=== PATIENT | female | born 1970 | race Caucasian/White ===

== ENCOUNTER → 2018-08-23 | Outpatient (CLI) | payer OTHER ==
--- NOTE | 2018-08-26 08:26 | USB ---
Reason for exam: clinical finding. History: Patient had first child at age 32. Taking hormonal contraceptives beginning at age 16. Indicated problem(s): palpable abnormality, skin thickening or retraction, lump or thickening, and pain in the right breast. Physical Findings: Nurse Summary: 2-3cm nodule at 10 o'clock, 1cm nodule at 12 o'clock (nurse dw). US Breast RT Right complete breast ultrasound includes all four quadrants, the retroareolar region and axilla. Finding demonstrates a 1.8 x 0.9 x 3.1cm irregular, solid, vascular lesion at 9 o'clock BB, a 0.6 x 0.3 x 0.6cm oval, cystic lesion at 10 o'clock, a 0.7 x 0.3 x 0.6cm oval, cystic lesion at 11 o'clock and two benign lymph nodes at the axilla measuring 0.5cm and 0.6cm. These results were verbally communicated with the patient and result sheet given to the patient on 08/23/18. ASSESSMENT: Highly suggestive of malignancy, BI-RAD 5 RECOMMENDATION: Ultrasound core biopsy of the right breast. Called Dr. Knight with mammographic findings and has scheduled an appointment for the patient for 09/19/18 at 9:[address] Sloan. Biopsy scheduled for 08/30/18 at 8:00. PRELIMINARY REPORT CALLED AND FAXED TO DR. SLOAN ON 08/26/18.
--- NOTE | 2018-08-26 08:30 | MM ---
Reason for exam: screening (asymptomatic). Baseline mammogram. History: Patient had first child at age 32. Taking hormonal contraceptives beginning at age 16. MG 3D Screening Mammo W/Cad Bilateral CC and MLO view(s) were taken. The breast tissue is heterogeneously dense. This may lower the sensitivity of mammography. Finding: There is a 30-50 mm spiculated mass in the upper outer quadrant, posterior position of the right breast. These results were verbally communicated with the patient and result sheet given to the patient on 08/23/18. ASSESSMENT: Incomplete: need additional imaging evaluation, BI-RAD 0 RECOMMENDATION: Ultrasound of the right breast.
== END ==
LOC: RADUSWWP 13:56
PROVIDERS: ATTEND Family Medicine
DX: Z12.31 Encounter for screening mammogram for malignant neoplasm of breast (principal); N64.4 Mastodynia; R92.8 Other abnormal and inconclusive findings on diagnostic imaging of breast
CPT/HCPCS: 77063; 77067

== ENCOUNTER → 2018-08-30 | Day surgery (SDC) | payer OTHER ==
[2018-08-30 07:18] VITALS: RESP 16
[2018-08-30 08:43] VITALS: BP 93/58; PULSE 71; TEMP 98.3
--- NOTE | 2018-08-30 12:59 | USB ---
EXAMINATION TYPE: US biopsy breast VAD RT, MG diagnostic mammo RT wo CAD DATE OF EXAM: 08/30/2018 CLINICAL HISTORY: R92.8 ABN YESSI. TECHNIQUE: Ultrasound guided core biopsy of right breast. COMPARISON: 08/23/2018 FINDINGS: The procedure of ultrasound guided core biopsy was explained to the patient. Benefits, alternatives, and risks were discussed. An informed consent was then obtained. Preprocedural timeout was performed. The patient was placed in supine positioning for imaging and for the procedure. The overlying skin was prepped and draped in usual sterile fashion. 10 cc of lidocaine buffered with bicarbonate was used as anesthetic into the skin and subcutaneous as well as 10 cc of lidocaine with epinephrine within the subcutaneous tissues at the site of biopsy up to the 1.8 x 0.9 x 3.1 cm mass at the 9:00 position. Under ultrasound guidance, a 12-gauge vacuum assisted biopsy gun device was used to obtain 4 core samples. Following this, a coil-shaped biopsy marker was left in lesion. The patient tolerated the procedure well without any immediate complication. The patient was kept in the radiology department for short stay after the procedure and then discharged home in stable condition. Postprocedure mammogram demonstrates the biopsy marker located approximately 2 mm medial and 3 mm inferior to the mammographic mass. IMPRESSION: Successful, uncomplicated ultrasound guided core biopsy of the highly suspicious 1.8 x 0.9 x 3.1 cm mass at the 9:00 position within the right breast, full pathology results to follow. No sonographically suspicious lymph nodes were seen on the prior ultrasound of 08/23/2018. 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 Lobular carcinoma and lobular intraepithelial neoplasia/lobular carcinoma in situ is supported by E-Cadherin stained section which is examined in conjunction with appropriate controls. See Surgical Pathology Cancer Case Summary. Recommendation Surgical consult of the right breast. LILA
== END ==
LOC: RADUSWWP 07:02
PROVIDERS: ATTEND Surgery
DX: C50.911 Malignant neoplasm of unspecified site of right female breast (principal)
CPT/HCPCS: 88305; 88342; 88341; 77065; 19083; A4648; J2001

== ENCOUNTER → 2018-09-23 | Outpatient (CLI) | payer OTHER ==
--- NOTE | 2018-09-26 15:43 | BMR ---
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 TECHNIQUE: A series of fat and water weighted images in the long and short axis views of both breasts are obtained in conjunction with dynamic contrast MRI with subtraction technique. The patient was i njected with 6.5 mL intravenous Gadavist gadolinium contrast. Three-dimensional and additional post processing imaging is created on independent workstation and reviewed during official interpretation of this study. REFERENCE: 1.8 x 0.9 x 3.1 cm mass at the 9:00 position on ultrasound FINDINGS: The breasts are composed of heterogenous fibroglandular tissue with mild symmetric backgrou nd parenchymal enhancement. The biopsy marker creates susceptibility artifact at the inferior margin of the biopsy-proven infiltr ating adenocarcinoma consistent with pleomorphic lobular carcinoma. Avid mass enhancement with type I II washout kinetics measures 1.4 x 1.3 cm. At the caudal aspect of the biopsy marker there is nonmass enhancement extending posteriorly measuring 9 mm. The total anterior posterior dimension of the mass measures 2.5 cm. Additionally there is a 2 mm focus of enhancement on postcontrast series 701 image 302 that is located 1 cm anterior to the mass, 4 mm medial to the mass, and 1 cm cranial to the mass at approximately the 11:00 position. This demonstrates punctate focus of type I and type II kinetics and is suspicious given the lobular neoplasm. Just anterior to this there is another punctate focus l ocated 5 mm anterior and 1 cm cranial to the index mass at the 10:00 position. All of these are locat ed in the upper outer quadrant of the right breast. Foci are best seen on sagittal series 802 image 3 0 and marked. Total anterior posterior distance from the nonmass enhancement and most anterior focus measures 5 cm. No suspicious mass nor nonmass enhancement is seen on the left. No suspicious axillary adenopathy, internal mammary adenopathy, nor intramammary adenopathy is seen. IMPRESSION: 1. BI-RADS [id number]-qrtpto malignancy. The right breast mass has a total greatest measurement of 2.5 cm including a 9 mm extension towards the chest wall of nonmass enhancement. There are 2 additional s uspicious foci in the right upper outer quadrant. Including these foci the total measurement in anter ior posterior dimension is 5 cm. Given these enhancing foci multicentric disease is possible and if b reast conservation therapy is pursued MR guided biopsy could be performed (the more posterior focus i s of greater suspicion than the more anterior focus). 2. No MR evidence of contralateral neoplasm in the left breast. No suspicious axillary, internal mamm chente or intramammary adenopathy.
== END | disposition home or self-care (01) ==
LOC: RADMRIMAIN 19:29
PROVIDERS: ATTEND Surgery
DX: N63.10 Unspecified lump in the right breast, unspecified quadrant (principal); C50.911 Malignant neoplasm of unspecified site of right female breast
CPT/HCPCS: 77049; A9585

== ENCOUNTER 2018-10-04 07:33 | Day surgery (SDC) | payer OTHER ==
[2018-10-03 08:29] VITALS: BMI 22.6
[~2018-10-04 07:33] MED LIST: LACTATED RINGERS 1,000 ML IV SCH
[2018-10-04 07:54] VITALS: RESP 16; TEMP 98.2
[2018-10-04] MEDS ORDERED: LIDOCAINE 1% 20 ML VIAL (10MG/ML) FOR IV START INTRADERMA ONE (08:00)
[2018-10-04] MEDS ORDERED: PROPOFOL 10 MG/ML 20 ML VIAL IV ONE (08:27)
--- NOTE | 2018-10-04 08:28 | P.GSHP ---
History of Present Illness H&P Date: 10/04/18 CHIEF COMPLAINT: Colon screen HISTORY OF PRESENT ILLNESS: The patient is a 48-year-old female who presents for colon screen. Lower endoscopy was offered for further evaluation and management. PAST MEDICAL HISTORY: Please see list. PAST SURGICAL HISTORY: Please see list. MEDICATIONS: Please see list. ALLERGIES: Please see list. SOCIAL HISTORY: No illicit drug use FAMILY HISTORY: No reports of Crohn disease or ulcerative colitis. REVIEW OF ORGAN SYSTEMS: CONSTITUTIONAL: No reports of fevers or chills. PHYSICAL EXAM: VITAL SIGNS: Stable GENERAL: Well-developed pleasant in no acute distress. HEENT: No scleral icterus. Extraocular movements grossly intact. Moist buccal mucosa. NECK: Supple without lymphadenopathy. CHEST: Unlabored respirations. Equal bilateral excursions. CARDIOVASCULAR: Regular rate and rhythm. Distal 2+ pulses. ABDOMEN: Soft, nontender, nondistended. MUSCULOSKELETAL: No clubbing, cyanosis, or edema. ASSESSMENT: 1. Colon screen. PLAN: 1. Recommend proceeding with a lower endoscopy Past Medical History Past Medical History: Cancer, GERD/Reflux, Hypertension Additional Past Medical History / Comment(s): seasonal allergies. NEW DX RT BREAST CANCER History of Any Multi-Drug Resistant Organisms: None Reported Additional Past Surgical History / Comment(s): "surgery for endometriosis"- 2000 Past Anesthesia/Blood Transfusion Reactions: No Reported Reaction Smoking Status: Never smoker - Past Family History Father Family Medical History: Cancer Medications and Allergies Home Medications Medication Instructions Recorded Confirmed Type Benazepril HCl 40 mg PO DAILY 08/29/18 10/03/18 History Famotidine 40 mg PO HS 08/29/18 10/03/18 History Loratadine [Claritin] 10 mg PO DAILY PRN 08/29/18 10/03/18 History amLODIPine [Norvasc] 10 mg PO DAILY 08/29/18 10/03/18 History Medroxyprogesterone Acetate 150 mg IM Q90D 10/03/18 10/03/18 History [Depo-Provera] Allergies Allergy/AdvReac Type Severity Reaction Status Date / Time No Known Allergies Allergy Verified 10/04/18 07:44 Surgical - Exam Vital Signs Temp Pulse Resp BP Pulse Ox 98.2 F 94 16 126/79 100 10/04/18 07:49 10/04/18 07:49 10/04/18 07:49 10/04/18 07:49 10/04/18 07:49
--- NOTE | 2018-10-04 08:50 | P.PCN ---
Date of Procedure: 10/04/18 Operative Findings: Hepatic flexure 5 mm with snare, random at ascending colon, evidence of fresh blood without definitive source, stage 2 internal hemorrhoids, prep 1 Description of Procedure: PREOPERATIVE DIAGNOSIS: Family history colon cancer Rectal bleeding POSTOPERATIVE DIAGNOSIS: Family history colon cancer Rectal bleeding OPERATION: Colonoscopy to the ileocecal valve and appendiceal orifice. Colonoscopy with hot snare polypectomies Colonoscopy with multiple cold forceps biopsies. SURGEON: Milka Valadez MD. ANESTHESIA: MAC. INDICATIONS: The patient is a 48-year-old female who presents for colonoscopy screening. Benefits and risks were described and informed consent was obtained. DESCRIPTION OF PROCEDURE: The patient had undergone Gatorade, MiraLAX and Dulcolax prep. He had been brought into the operating room and laid in the left lateral decubitus position. After adequate intravenous sedation, the rectum was examined with 2% lidocaine jelly. External hemorrhoids were encountered. The rectal tone was within normal limits. No lesions were palpated in the rectal vault. An Olympus colonoscope was advanced until the ileocecal valve and appendiceal orifice were clearly viewed. The prep was fair with visualization of the mucosal folds. The scope was removed with visualization of each mucosal fold. No scattered diverticulosis was encountered. Multiple colonic polyps were found and cold forcep biopsy or snare polypectomy. No evidence of focal colitis was found. Retroflexion of the scope demonstrated grade 1 internal hemorrhoids without active bleeding or inflammation. The colon was desufflated. The patient had tolerated the procedure well. Withdrawal time was over 6 minutes. FINDINGS: Aronchick preparation quality scale 1 (1-5) Internal hemorrhoids, grade 2 External hemorrhoids, grade 2. No arteriovenous malformations. Removal of 1 polyp: - Snare polypectomy 20 cm from the anal verge, 5 mm tubulovillous adenoma polyp. Rendom cold forceps biopsy at proximal transverse colon, 4 mm polyp. No focal colitis. RECOMMENDATIONS: Plan - Discharge Summary Discharge Rx Participant: No New Discharge Prescriptions: No Action amLODIPine [Norvasc] 10 mg PO DAILY Loratadine [Claritin] 10 mg PO DAILY PRN PRN Reason: seasonal allergies Famotidine 40 mg PO HS Benazepril HCl 40 mg PO DAILY Medroxyprogesterone Acetate [Depo-Provera] 150 mg IM Q90D Discharge Medication List Benazepril HCl 40 mg PO DAILY 08/29/18 [History] Famotidine 40 mg PO HS 08/29/18 [History] Loratadine [Claritin] 10 mg PO DAILY PRN 08/29/18 [History] amLODIPine [Norvasc] 10 mg PO DAILY 08/29/18 [History] Medroxyprogesterone Acetate [Depo-Provera] 150 mg IM Q90D 10/03/18 [History] Follow up Appointment(s)/Referral(s): Milka Valadez MD [STAFF PHYSICIAN] - 10/22/18 Patient Instructions/Handouts: *Surgery [facility] - (Anesthesia) Endoscopy Discharge Instructions, Colorectal Polyps (DC) Discharge Disposition: HOME SELF-CARE
[2018-10-04 09:06] VITALS: BP 106/74; PULSE 90
== END 2018-10-04 09:18 | disposition home or self-care (01) ==
LOC: ORWHC2ENDO 07:33
PROVIDERS: ATTEND Surgery Plastic and Reconstructive Surgery
DX: D12.3 Benign neoplasm of transverse colon (principal); K64.1 Second degree hemorrhoids; K21.9 Gastro-esophageal reflux disease without esophagitis; I10 Essential (primary) hypertension; C50.911 Malignant neoplasm of unspecified site of right female breast; Z79.3 Long term (current) use of hormonal contraceptives; Z79.899 Other long term (current) drug therapy
CPT/HCPCS: 81025; 88305; 45380; 45385; J2704

== ENCOUNTER → 2018-11-15 | Outpatient (CLI) | payer OTHER | END | disposition home or self-care (01) | LOC: LABPAT 12:35 | PROVIDERS: ATTEND Plastic Surgery | DX: Z01.812 Encounter for preprocedural laboratory examination (principal); Z01.818 Encounter for other preprocedural examination | CPT/HCPCS: 93005 ==

== ENCOUNTER 2018-11-19 07:19 | Observation (INO) | payer OTHER ==
--- NOTE | 2018-11-18 16:06 | P.GSHP ---
History of Present Illness H&P Date: 11/18/18 Chief Complaint: Right breast cancer Please refer to office history and physical. Patient diagnosed recently with invasive lobular cancer right breast 9:00. Size estimates based on recent MRI between 2 and 5 cm. Possibly multicentric. No left-sided malignancy seen. Patient doing well. She was seen by plastic surgery. She has been interested in mastectomy from early on. She was not interested in breast conservation or attempts at tumor size reduction in the neoadjuvant setting. Patient has no family history of breast cancer although has other family members who have had various cancers. Past Medical History Past Medical History: Cancer, GERD/Reflux, Hypertension Additional Past Medical History / Comment(s): seasonal allergies, rt breast cancer History of Any Multi-Drug Resistant Organisms: None Reported Past Surgical History: Tonsillectomy Additional Past Surgical History / Comment(s): "surgery for endometriosis"- 2000, colonoscopy with 1 polyp removed Past Anesthesia/Blood Transfusion Reactions: No Reported Reaction Smoking Status: Never smoker - Past Family History Father Family Medical History: Cancer Medications and Allergies Home Medications Medication Instructions Recorded Confirmed Type Benazepril HCl 40 mg PO DAILY 08/29/18 11/15/18 History Famotidine 40 mg PO HS 08/29/18 11/15/18 History Loratadine [Claritin] 10 mg PO DAILY PRN 08/29/18 11/15/18 History amLODIPine [Norvasc] 10 mg PO DAILY 08/29/18 11/15/18 History Metoclopramide [Reglan] 10 mg PO QID PRN 11/15/18 11/15/18 History Allergies Allergy/AdvReac Type Severity Reaction Status Date / Time No Known Allergies Allergy Verified 11/15/18 09:01 Surgical - Exam Physical exam: General: Well-developed, well-nourished HEENT: Normocephalic, sclerae nonicteric Right breast: Dimpling with induration 9:00, no adenopathy Left breast: No masses, no adenopathy Abdomen: Nontender, nondistended Extremities: No edema Neuro: Alert and oriented Assessment and Plan (1) Breast cancer, right Narrative/Plan: Will proceed with bilateral simple mastectomy with right sentinel lymph node biopsy/injection with possible right completion axillary node dissection. Patient will have concurrent reconstruction by Dr. Hughes. Risks of bleeding, infection, recurrence, potential need for additional surgery, nerve damage, seroma, dimpling, scarring, wound formation, ischemic changes, anesthesia complications were reviewed. She understands and wishes to proceed. Status: Acute Code(s): C50.911 - MALIGNANT NEOPLASM OF UNSP SITE OF RIGHT FEMALE BREAST SNOMED Code(s): 965687265
[~2018-11-19 07:19] MED LIST changes: +DEXAMETHASONE SOD PHOSPHATE 10 MG/ML 1 ML VIAL IV ONE; +HEPARIN SODIUM,PORCINE 5,000 UNIT/ML 1 ML VIAL SQ ONE; -LACTATED RINGERS 1,000 ML IV SCH; +LIDOCAINE 1% 20 ML VIAL (10MG/ML) FOR IV START INTRADERMA PRN; +MIDAZOLAM 2 MG/2 ML VIAL IV PRN; +ONDANSETRON 4 MG/2 ML VIAL IVP ONE; +Pre Op ABX Message 1 EACH MISC MISCELLANE ONE; +SCOPOLAMINE 1.5MG/72HR PATCH TRANSDERM ONE
[2018-11-19] MEDS: LACTATED RINGERS 1,000 ML IV SCH (07:59)
--- NOTE | 2018-11-19 08:31 | P.NAPBC ---
[facility] Queries - [facility] Queries Was patient's case review presented at [facility] tumor board? If no, comment.: No Was patient's pathology reviewed at [facility]? If no, comment.: Yes Was breast conservation surgery offered? If no, comment.: Yes Was sentinel node biopsy offered? If no, comment.: Yes Was diagnosis confirmed by percutaneous core biopsy? If no, comment.: Yes Is patient mastectomy patient?: Yes Was a preop referral to reconstructive surgeon offered?: Yes [facility] Comments: 2a
[2018-11-19] MEDS ORDERED: MIDAZOLAM (PF) 2 MG/2 ML VIAL IV ONE (08:35)
[2018-11-19] MEDS ORDERED: LIDOCAINE 1% INJ 10MG/ML (20 ML MDV) ONE (08:46)
[2018-11-19] MEDS ORDERED: ROPIVACAINE 5 MG/ML 30 ML VIAL ONE (08:46)
[2018-11-19] MEDS ORDERED: fentaNYL (PF) 50 MCG/ML 2 ML AMP ONE (08:46)
[2018-11-19] MEDS ORDERED: PROPOFOL 10 MG/ML 20 ML VIAL IV ONE (08:46)
[2018-11-19] MEDS ORDERED: MIDAZOLAM 2 MG/2 ML VIAL ONE (08:46)
[2018-11-19] MEDS ORDERED: PHENYLEPHRINE-0.9% NACL SYG 1 MG/10 ML SYRINGE ONE (08:46)
[2018-11-19] MEDS ORDERED: HYDROmorphone (PF) 1 MG/ML ONE (08:46)
[2018-11-19] MEDS ORDERED: SUCCINYLCHOLINE CHLORIDE 100 MG/5 ML SYR IV ONE (08:46)
[2018-11-19] MEDS ORDERED: KETAMINE 10 MG/ML 20 ML VIAL ONE (08:46)
--- NOTE | 2018-11-19 08:46 | NM ---
EXAMINATION TYPE: NM sentinel node injection DATE OF EXAM: 11/19/2018 COMPARISON: NONE HISTORY: Biopsy-proven right breast cancer. TECHNIQUE AND FINDINGS: The procedure of sentinel lymph node injection was explained to the patient. The benefits, alternatives, and risks were discussed. An informed consent was then obtained. Overlying skin is cleaned with sterile alcohol. Following this, 500 uCi Tc99m Tilmanocept was inject ed in the upper outer aspect of the right nipple intradermally. The patient tolerated the procedure well without any immediate complication. The patient was kept in the radiology department for short stay after the procedure and then taken to surgery for surgical p rocedure what is presumed intraoperative gamma probe will be used for sentinel lymph node detection. IMPRESSION: Right breast radiotracer injection for sentinel node localization as above.
[2018-11-19] MEDS ORDERED: METHYLENE BLUE 10 MG/ML (10 ML VIAL) MISCELLANE ONE (09:10)
[2018-11-19] MEDS ORDERED: SODIUM CHLORIDE 0.9% 50 ML with ceFAZolin 2,000 MG IV ONE ×2 (09:13)
[2018-11-19] MEDS ORDERED: LACTATED RINGERS 1,000 ML IV ONE ×3 (09:36→12:30)
[2018-11-19] MEDS ORDERED: NALOXONE 0.4 MG/ML 1 ML VIAL IV PRN (11:50)
[2018-11-19] MEDS ORDERED: ONDANSETRON 4 MG/2 ML VIAL IVP PRN (11:50)
--- NOTE | 2018-11-19 12:01 | P.OP ---
Date of Procedure: 11/19/18 Procedure(s) Performed: PREOPERATIVE DIAGNOSIS: Right breast cancer POSTOPERATIVE DIAGNOSIS: Same PROCEDURE: Bilateral simple mastectomy with right sentinel lymph node biopsy and completion right axillary node dissection with concurrent reconstruction SURGEON: Luther EBL: Minimal ANESTHESIA: General COMPLICATIONS: None OPERATIVE PROCEDURE: Patient was placed on the operating room table in the supine position. 2 mL of methylene blue was injected into the right subareolar space. The breast was then massaged for 5 minutes. The upper torso anteriorly was prepped and draped in usual sterile fashion. The left side was first addressed. Plastic surgery had created skin markings preoperatively. The circ ular skin marking around the left area low was followed for our incision. This incision was then made using the scalpel. Dissection through the subcutaneous tissues took place using electrocautery down to the chest wall circumferentially. The breast was removed from the chest wall at that time. The LigaSure was used for small visible vessels. No bleeding was encountered. The right side was then addressed. A small curvilinear incision in the right axilla took place over the hot spot identified by neoprobe. The subcutaneous tissues were divided using electrocautery and blunt dissection. A total of 4 hot lymph nodes were identified and removed. These were all blue. Only the initial lymph node was slightly enlarged and indurated. These were sent for frozen section. Later we learned that the initial lymph node did come back positive for a sizable metastatic deposit. Prior to that the mastectomy was performed on the right breast. In a similar fashion the incision was made carlito und the areola. The skin hooks were utilized and the flaps were raised circumferentially using electrocautery down to the chest wall. The breast was again removed from the chest wall using electrocautery. Small vessels were ligated using the LigaSure device. No bleeding was seen. At that point we went back to the right axilla. A formal axillary node dissection took place. Axillary contents were swept from the level of the axillary vein inferiorly. The superficial vein was ligated using a 3-0 silk stitch. Using a combination of electrocautery and 3-0 silk ties and the LigaSure device the axillar contents were sent off for permanent sectioning. No additional suspicious nodes were encountered. At this point plastic surgery took over the reconstruction and closure of the incision sites with drain placement. The family was informed of the progress of surgery. DISPOSITION: Patient to remain in the operating for completion and closure by Dr. Manning.
[2018-11-19] MEDS ORDERED: ACETAMINOPHEN IV (For NPO) 1,000 MG in EMPTY BAG 1 BAG IVPB ONE (13:30)
[2018-11-19] MEDS: HYDROmorphone 0.5 MG/0.5 ML SYRINGE IVP PRN ×4 (13:40→14:11)
[2018-11-19 15:39] VITALS: BMI 23.3
[2018-11-19] MEDS: HEPARIN SODIUM,PORCINE 5,000 UNIT/ML 1 ML VIAL SQ SCH ×2 (15:54→23:38)
[2018-11-19] MEDS: HYDROmorphone 1 MG/ML 1 ML SYRINGE IVP PRN ×3 (15:58→23:38)
[2018-11-19] MEDS: D5-0.45% NACL WITH KCL 20MEQ/L 1,000 ML IV SCH (18:15)
--- NOTE | 2018-11-19 19:42 | P.CONS ---
History of Present Illness - Reason for Consult Consult date: 11/19/18 Medical management of hypertension and other medical problems - Chief Complaint Admitted for Bilateral mastectomy - History of Present Illness Patient is a 48-year-old female with a known history of hypertension, GERD and right breast cancer diagnosed in September 2018. Patient was had workup including mammogram, ultrasound, biopsy and MRI. Patient was diagnosed with invasive lobular right breast cancer. Patient was admitted to the hospital for elective bilateral simple mastectomy. Patient has no family history of breast cancer although has other family members who have had various cancers. Patient had Bilateral simple mastectomy with right sentinel lymph node biopsy and completion right axillary node dissection with concurrent reconstruction. Tolerated the procedure very well. Currently pain is fairly controlled. No complains of chest pain or shortness of breath. No headache or dizziness or lightheadedness. Review of Systems Constitutional: Patient denies any fever or chills . No generalized weakness or weight loss. Abdomen: Patient denied nausea vomiting and diarrhea and abdominal pain. Cardiovascular: Patient denies any chest pain or short of breath no palpitations. Respiratory: patient denied any cough is from production. No shortness of breath Neurologic: Patient denied any numbness or tingling headache. Musculoskeletal: Patient denies any complaints of joint swelling or deformity. Skin: Negative Psychiatric: Negative Endocrine: No heat or cold intolerance. No recent weight gain. Genitourinary: No dysuria or hematuria. All other 14 point ROS negative except the above Past Medical History Past Medical History: Cancer, GERD/Reflux, Hypertension Additional Past Medical History / Comment(s): seasonal allergies, rt breast cancer History of Any Multi-Drug Resistant Organisms: None Reported Past Surgical History: Tonsillectomy Additional Past Surgical History / Comment(s): "surgery for endometriosis"- 2000, colonoscopy with 1 polyp removed Past Anesthesia/Blood Transfusion Reactions: No Reported Reaction Smoking Status: Never smoker - Past Family History Father Family Medical History: Cancer Medications and Allergies Home Medications Medication Instructions Recorded Confirmed Type Benazepril HCl 40 mg PO DAILY 08/29/18 11/19/18 History Famotidine 40 mg PO HS 08/29/18 11/19/18 History Loratadine [Claritin] 10 mg PO DAILY PRN 08/29/18 11/19/18 History amLODIPine [Norvasc] 10 mg PO DAILY 08/29/18 11/19/18 History Metoclopramide [Reglan] 10 mg PO QID PRN 11/15/18 11/19/18 History Allergies Allergy/AdvReac Type Severity Reaction Status Date / Time No Known Allergies Allergy Verified 11/19/18 07:34 Physical Exam Vitals: Vital Signs Temp Pulse Resp BP Pulse Ox 11/19/18 16:43 68 101/66 98 11/19/18 16:13 72 98/68 98 11/19/18 15:58 75 104/66 100 11/19/18 15:43 68 103/69 98 11/19/18 15:33 81 16 11/19/18 15:28 76 103/69 98 11/19/18 15:13 74 101/68 98 11/19/18 14:58 97.7 F 73 94/64 98 11/19/18 14:28 81 16 101/62 99 11/19/18 14:13 71 16 106/62 100 11/19/18 13:58 68 16 100/59 99 11/19/18 13:43 70 16 96/56 100 11/19/18 13:28 67 16 95/58 92 L 11/19/18 13:13 97.3 F L 73 12 97/55 99 11/19/18 07:44 98.3 F 72 16 110/73 100 Intake and Output 11/19/18 11/19/18 11/19/18 06:59 14:59 22:59 Intake Total 2350 Output Total 455 70 Balance 1895 -70 Intake: IV 2350 Output: Drainage 70 Left 20 Right 30 Right Lower 20 Urine 355 Estimated Blood Loss 100 Other: Voiding Method Indwelling Catheter PHYSICAL EXAMINATION: Patient is lying in the bed comfortably, no acute distress, awake alert and oriented.. HEENT: Normocephalic. Neck is supple. Pupils reactive. Nostrils clear. Oral cavity is moist. Ears reveal no drainage. Neck reveals no JVD, carotid bruits, or thyromegaly. CHEST EXAMINATION: Trachea is central. Symmetrical expansion. Lung bahena clear to auscultation and percussion. Bilateral Breast sx site is packed at this time. CARDIAC: Normal S1, S2 with no gallops. No murmurs ABDOMEN: Soft. Bowel sounds normal. No organomegaly. No abdominal bruits. Extremities: reveal no edema. No clubbing or cyanosis Neurologically awake, alert, oriented x3 with well-coordinated movements. No focal deficits noted Skin: No rash or skin lesions. Psychiatric: Coperative. Nonsuicidal Musculoskeletal: No joint swelling or deformity. Normal range of motion. Assessment and Plan Assessment: S/P Bilateral simple mastectomy with right sentinel lymph node biopsy and completion right axillary node dissection with concurrent reconstruction Invasive lobular right breast cancer Hypertension. Blood pressure is not elevated this time. GERD Seasonal ALLERGIES DVT prophylaxis with heparin subcu Plan: Patient be continued on IV hydration. Continue the pain management. Bowel regimen. Heparin subcu for DVT prophylaxis. Patient does take Norvasc and benazepril at home for blood pressure control. Will hold antihypertensive medications at this time since the patient is hypotensive. Follow up closely. Further recommendations based on the clinical course. Thank you for your consult.
[2018-11-19] MEDS ORDERED: FAMOTIDINE 20 MG TAB PO STA (20:23)
[2018-11-19] MEDS: DOCUSATE 100 MG CAP PO SCH (20:27)
[2018-11-20] MEDS: D5-0.45% NACL WITH KCL 20MEQ/L 1,000 ML IV SCH ×2 (00:32→20:25)
[2018-11-20] MEDS: HYDROcodone/APAP 5-325MG 1 EACH TAB PO PRN (05:03)
--- NOTE | 2018-11-20 05:21 | OP ---
OPERATIVE REPORT DATE OF SURGERY: November 19, 2018 SURGEON: Elkin Manning MD PREOPERATIVE DIAGNOSES: 1. Acquired loss right and left breast. 2. Right breast cancer. POSTOPERATIVE DIAGNOSES: 1. Acquired loss right and left breast. 2. Right breast cancer. OPERATIVE PROCEDURE: 1. Immediate reconstruction left breast following mastectomy with insertion of tissue senior mainframe programmer analyst and subsequent outpatient expansion. 2. Immediate reconstruction right breast following mastectomy with insertion tissue senior mainframe programmer analyst and subsequent outpatient expansion. 3. Implantation of reconstructive graft for right and left breast reconstruction. OPERATIVE INDICATIONS: The patient is a 48-year-old female who has invasive cancer of the right breast. She was referred to my care for breast reconstruction by her general surgeon, Dr. Glynn Sloan. The patient plans to proceed with bilateral mastectomy procedures and desires breast reconstruction and selected upon a tissue senior mainframe programmer analyst style staged reconstructive technique. She understands potential risks and complications related to today's surgery including, but not limited to seroma, hematoma, wound healing problems, tissue necrosis, among others. She also understands the staged nature of breast reconstructive surgery and that several procedures likely are required. She has requested to perform today's surgery. OPERATIVE PROCEDURE SUMMARY: The patient was seen in the presurgical area, markings made, procedure reviewed, all questions answered. She was transported to the operating room. She was placed in supine position. General endotracheal anesthesia was established. She was then prepped and draped in usual fashion. I was present for the surgical pause. After this, Dr. Sloan and surgical team proceeded with the mastectomy procedures beginning with the simple mastectomy on the left side and then proceeding to a sentinel lymph node excision and right mastectomy. The sentinel lymph node was positive and the patient underwent a full right axillary node dissection. Once the procedures were completed, I then entered the room. The patient was in supine position under general endotracheal anesthesia. Sponge and needle counts of prior procedure were correct. Laparotomy pads packed in each wound were removed. There was no active bleeding. Each wound site was irrigated and repacked with laparotomy pads. Attention was turned towards the left breast reconstruction. Pectoralis major muscle was identified as was its lateral border where it joined the chest wall. Loose areolar connective tissue divided with cauterization to allow entry into the potential plane between the pectoralis major and minor muscles which were bluntly developed. Medial attachment fibers of the pectorals major muscle to ribs were released with cautery and all inferior attachments to the ribs were released with cautery. Additional muscle tissue was required for coverage of the senior mainframe programmer analyst. Inferior laterally external abdominal oblique, inferior medially rectus abdominis muscle fascia and laterally serratus anterior muscle fascia were all elevated by dissection through this opening. Once a sufficient sized submuscular space was created, dissection stopped. Irrigation was performed. Hemostasis maintained with cautery. The site was packed open with laparotomy pads. Attention was turned towards the right side. Again the pectoralis major muscle was identified as was its lateral border. Loose areolar serial connective tissue divided along the lateral border, allowing entry into the potential plane between the pectoralis major and minor muscles which was bluntly developed medial attachment fibers of the pectorals major muscle to the rib structure was released with cautery and all inferior attachment fibers released with cautery. Again sufficient coverage required additional muscle tissue inferior medially rectus abdominis muscle and fascia, inferior laterally external abdominal oblique muscle and fascia and laterally serratus anterior muscle and fascia were all elevated through this approach with cautery. Hemostasis maintained with cautery during dissection. Once a sufficient sized submuscular pocket was created in a symmetrical fashion to the left side, dissection stopped. Irrigation was performed. Hemostasis was maintained with cautery. The 2 reconstructive cavities were now inspected for symmetry. Minor adjustments made. Once this was completed, the cavities were sized. Gloves changed and tissue expanders were opened on the field. Both expanders were from the [employer] High Profile model; reference #[id number]. The right-sided serial number was [id number]. The left-sided serial number was [id number]. The devices were only handled by the surgeon. The right-sided device opened first, irrigated with saline. All air extracted and 100 mL of 0.9 normal saline instilled. The senior mainframe programmer analyst was inserted in the reconstructive cavity and orientation was assured under direct vision. The left-sided device was now open. All air extracted and 100 mL of 0.9 normal saline instilled. The device inserted into the reconstructive cavity on the left side and again orientation assured under direct vision. The muscle flap tissue could not be closed over the expanders without significant tension. Therefore SurgiMend reconstructive graft measuring 10 x 15 cm and fenestrated was opened on the field. The graft was revitalized in room temperature saline and divided into 2 equal portions. The graft was placed above the senior mainframe programmer analyst, but deep to the muscle flap tissue spanning the area where closure of the muscle would be tight. The graft and muscle flap tissue were inset using short running 3-0 Vicryl sutures on each side. This allowed for placement of additional fluid in each senior mainframe programmer analyst. Each senior mainframe programmer analyst was filled to a final volume of 250 mL. Irrigation was performed. Hemostasis was excellent. Drains were now inserted. One drain placed on the left reconstructive cavity side above the muscle flap tissue deep to the skin flaps brought out through a separate stab incision left anterior lateral chest wall. Second drain was placed on the right side in similar location and a third drain placed in the axillary node dissection site which was a separate incision. All drains were sutured in place with 2- 0 Prolene and cut to the appropriate length. Axillary node dissection field was approximated closing Anupam's layer using inverted interrupted 4-0 Monocryl then the deep dermis with inverted interrupted 4-0 Monocryl and final closure of superficial dermis and epidermis completed with subcuticular 3-0 Prolene. The mastectomy procedures have been performed through a circumareolar incision. This circular openings for the skin closure in the right and left mastectomy sites were closed using deep dermal 2-0 Prolene pursestring technique followed by finer approximation of the deep dermis where necessary using inverted interrupted 4-0 Monocryl. Superficial dermis and epidermis was approximated with concepcion. Drains were connected to closed bulb suction and patent. Surgical bahena cleansed with saline, dried, postoperative bandages placed using Steri-Strips over the axillary closure site followed by 4x4s, drain sponges, and Kerlix roll gauze that had been unrolled and fluffed. This was all secured with 3M Medipore tape. The patient was then awakened from her anesthetic, extubated, and transferred to the recovery room in good condition with stable vital signs. The estimated blood loss was 100 mL. There were no complications. MMODL / IJN: [id number] / [facility] NETWOR[facility]
[2018-11-20] MEDS: LACTATED RINGERS 1,000 ML IV SCH (05:28)
--- NOTE | 2018-11-20 06:44 | P.ANPRN ---
Procedure Note - Anesthesia - Nerve Block Performed Bilateral Other (see comment) Single Time Out Performed: Yes (peci and pec2) Date of Procedure: 11/19/18 Procedure Start Time: 08:35 Procedure Stop Time: 08:47 Location of Patient Procedure: PreOp Indication: Acute Post-Operative Pain, Requested by physician Sedation Type: Sedate with meaningful contact maintained Preparation: Sterile Prep Position: Supine Needle Types: Pajunk Needle Gauge: 21 Technique: Ultrasound (Ropivacaine 0.5% 10 mL for each [place] and pick to block bilateral for a total of 40 mL of ropivacaine) Blood Aspirated: No Pain Paresthesia on Injection Noted: No Resistance on Injection: Normal Events: Uneventful and Well Tolerated
[2018-11-20 08:20] LABS: Basophils % (A) 0 %; Eosinophils # (A) 0.3 k/uL (0-0.7); Eosinophils % (A) 3 %; HCT 32.7 % (34.0-46.0); HGB 10.6 gm/dL (11.4-16.0); Lymphocytes # (A) 2.7 k/uL (1.0-4.8); Lymphocytes % (A) 24 %; MCH 29.1 pg (25.0-35.0); MCHC 32.5 g/dL (31.0-37.0); MCV 89.5 fL (80.0-100.0); Mean Platelet Volume 7.6; Monocytes # (A) 0.5 k/uL (0-1.0); Monocytes % (A) 4 %; Neutrophils # (A) 7.5 k/uL (1.3-7.7); Neutrophils % (A) 68 %; Platelet Count 188 k/uL (150-450); RBC 3.65 m/uL (3.80-5.40); RDW 13.6 % (11.5-15.5); WBC 11.1 k/uL (3.8-10.6)
[2018-11-20 08:36] LABS: African American GFR (CKD) >90 (>60 ml/min/1.73 sqM); Anion Gap 3 mmol/L; Blood Urea Nitrogen 10 mg/dL (7-17); Calcium 8.5 mg/dL (8.4-10.2); Carbon Dioxide 26 mmol/L (22-30); Chloride 108 mmol/L (98-107); Glucose 114 mg/dL (74-99); Potassium 4.2 mmol/L (3.5-5.1); Sodium 137 mmol/L (137-145)
[2018-11-20] MEDS: HYDROmorphone 1 MG/ML 1 ML SYRINGE IVP PRN ×4 (08:38→20:24)
[2018-11-20] MEDS: HEPARIN SODIUM,PORCINE 5,000 UNIT/ML 1 ML VIAL SQ SCH ×2 (08:40→15:21)
[2018-11-20] MEDS: PANTOPRAZOLE 40 MG/10 ML VIAL IV SCH (08:40)
[2018-11-20] MEDS: DOCUSATE 100 MG CAP PO SCH ×2 (08:42→20:24)
[2018-11-20] MEDS: METOCLOPRAMIDE 5 MG/ML 2 ML VIAL IVP PRN ×2 (15:19→20:28)
--- NOTE | 2018-11-20 19:16 | P.PN ---
Subjective Progress Note Date: 11/20/18 Principal diagnosis: Right breast cancer Patient doing better today. Pain is improved from last night. Drain output serosanguineous. She is ambulating. She is afebrile. Objective - Vital Signs Vital signs: Vital Signs Temp 97.7 F 11/20/18 14:50 Pulse 93 11/20/18 14:50 Resp 14 11/20/18 14:50 BP 105/70 11/20/18 14:50 Pulse Ox 99 11/20/18 17:22 Intake & Output 11/20/18 11/20/18 11/21/18 06:59 18:59 06:59 Intake Total 1200 700 Output Total 1495 1635 Balance -295 935 Intake: Intake, IV Titration 1200 700 Amount D5-0.45% NaCl with KCl 1200 700 20Meq/l 1,000 ml @ 100 mls/hr IV .Q10H TETE Rx#: [id number] Output: Drainage 95 235 Left 30 65 Right 35 80 Right Lower 30 90 Urine 1400 1400 Uretheral ([place]) 1400 1400 Other: Voiding Method Toilet - Exam Bilateral chest wall incision sites with out erythema, mild tenderness, no ischemic changes - Labs CBC & Chem 7: 11/20/18 07:16 11/20/18 07:16 Labs: Abnormal Lab Results - Last 24 Hours (Table) 11/20/18 11/20/18 Range/Units 07:16 07:16 WBC 11.1 H (3.8-10.6) k/uL RBC 3.65 L (3.80-5.40) m/uL Hgb 10.6 L (11.4-16.0) gm/dL Hct 32.7 L (34.0-46.0) % Chloride 108 H (98-107) mmol/L Glucose 114 H (74-99) mg/dL Assessment and Plan (1) Breast cancer, right Narrative/Plan: Remove [place] catheter. Decrease fluid rate. Add Toradol for pain control. Probable discharge tomorrow. Current Visit: Yes Status: Acute Code(s): C50.911 - MALIGNANT NEOPLASM OF UNSP SITE OF RIGHT FEMALE BREAST SNOMED Code(s): 469112789
[2018-11-21] MEDS: HEPARIN SODIUM,PORCINE 5,000 UNIT/ML 1 ML VIAL SQ SCH ×4 (00:38→23:57)
[2018-11-21] MEDS: KETOROLAC 30 MG/ML 1 ML VIAL IVP SCH ×5 (00:39→23:57)
[2018-11-21] MEDS: HYDROmorphone 1 MG/ML 1 ML SYRINGE IVP PRN ×2 (01:29→13:29)
[2018-11-21] MEDS: LACTATED RINGERS 1,000 ML IV SCH (02:47)
[2018-11-21] MEDS: HYDROcodone/APAP 5-325MG 1 EACH TAB PO PRN ×4 (05:46→22:15)
[2018-11-21] MEDS: D5-0.45% NACL WITH KCL 20MEQ/L 1,000 ML IV SCH ×2 (05:48→20:10)
[2018-11-21] MEDS: PANTOPRAZOLE 40 MG/10 ML VIAL IV SCH (07:51)
[2018-11-21] MEDS: DOCUSATE 100 MG CAP PO SCH ×2 (07:51→20:12)
--- NOTE | 2018-11-21 14:37 | P.PN ---
Subjective Progress Note Date: 11/20/18 Principal diagnosis: Bilateral simple mastectomy with right sentinel lymph node biopsy and completion right axillary node dissection with concurrent reconstruction Patient is a 48-year-old female with a known history of hypertension, GERD and right breast cancer diagnosed in September 2018. Patient was had workup including mammogram, ultrasound, biopsy and MRI. Patient was diagnosed with invasive lobular right breast cancer. Patient was admitted to the hospital for elective bilateral simple mastectomy. Patient has no family history of breast cancer although has other family members who have had various cancers. Patient had Bilateral simple mastectomy with right sentinel lymph node biopsy and completion right axillary node dissection with concurrent reconstruction. Tolerated the procedure very well. Currently pain is fairly controlled. No complains of chest pain or shortness of breath. No headache or dizziness or lightheadedness. 11/20/2018 Patient denied any complaints of chest pain or shortness of breath. Blood pressure is is in the lower side. Continue to hold blood pressure medications. No complaints of fever or chills. No headache or dizziness lightheadedness. No leg swelling. Patient is able to tolerate oral diet and is being advanced. Patient was nauseated this morning and was given Zofran IV as needed. Denied dysuria or hematuria. All other review of systems negative except the above Current medications reviewed. Objective - Vital Signs Vital signs: Vital Signs Temp 97.7 F 11/20/18 14:50 Pulse 93 11/20/18 14:50 Resp 14 11/20/18 14:50 BP 105/70 11/20/18 14:50 Pulse Ox 99 11/20/18 17:22 Intake & Output 11/20/18 11/20/18 11/21/18 06:59 18:59 06:59 Intake Total 1200 700 Output Total 1495 1635 Balance -295 -935 Intake: Intake, IV Titration 1200 700 Amount D5-0.45% NaCl with KCl 1200 700 20Meq/l 1,000 ml @ 100 mls/hr IV .Q10H TETE Rx#: [id number] Output: Drainage 95 235 Left 30 65 Right 35 80 Right Lower 30 90 Urine 1400 1400 Uretheral ([place]) 1400 1400 Other: Voiding Method Toilet - Exam PHYSICAL EXAMINATION: Patient is lying in the bed comfortably, no acute distress, awake alert and or iented.. HEENT: Normocephalic. Neck is supple. Pupils reactive. Nostrils clear. Oral cavity is moist. Ears reveal no drainage. Neck reveals no JVD, carotid bruits, or thyromegaly. CHEST EXAMINATION: Trachea is central. Symmetrical expansion. Lung bahena clear to auscultation and percussion. Bilateral Breast sx site is packed at this time. CARDIAC: Normal S1, S2 with no gallops. No murmurs ABDOMEN: Soft. Bowel sounds normal. No organomegaly. No abdominal bruits. Extremities: reveal no edema. No clubbing or cyanosis Neurologically awake, alert, oriented x3 with well-coordinated movements. No focal deficits noted Skin: No rash or skin lesions. Psychiatric: Coperative. Nonsuicidal Musculoskeletal: No joint swelling or deformity. Normal range of motion. - Labs CBC & Chem 7: 11/20/18 07:16 11/20/18 07:16 Labs: Abnormal Lab Results - Last 24 Hours (Table) 11/20/18 11/20/18 Range/Units 07:16 07:16 WBC 11.1 H (3.8-10.6) k/uL RBC 3.65 L (3.80-5.40) m/uL Hgb 10.6 L (11.4-16.0) gm/dL Hct 32.7 L (34.0-46.0) % Chloride 108 H (98-107) mmol/L Glucose 114 H (74-99) mg/dL Assessment and Plan Assessment: S/P Bilateral simple mastectomy with right sentinel lymph node biopsy and completion right axillary node dissection with concurrent reconstruction. On 11/19/2018 Invasive lobular right breast cancer Hypertension. Blood pressure is not elevated this time. GERD Seasonal ALLERGIES DVT prophylaxis with heparin subcu Plan: Patient be continued on IV hydration. Continue the pain management. Bowel regimen. Heparin subcu for DVT prophylaxis. Patient does take Norvasc and benazepril at home for blood pressure control. Will hold antihypertensive medications at this time since the patient is hypotensive. Follow up closely. Further recommendations based on the clinical course. Thank you for your consult.
--- NOTE | 2018-11-21 16:25 | P.PN ---
Subjective Progress Note Date: 11/21/18 Principal diagnosis: Right breast cancer Patient doing well today. Pain is controlled. Tolerating diet. Drains are serosanguineous. Objective - Vital Signs Vital signs: Vital Signs Temp 97.1 F L 11/21/18 14:48 Pulse 91 11/21/18 14:48 Resp 16 11/21/18 14:48 BP 129/84 11/21/18 14:48 Pulse Ox 96 11/21/18 14:48 Intake & Output 11/20/18 11/21/18 11/21/18 18:59 06:59 18:59 Intake Total 700 340 Output Total 1635 1585 80 Balance -935 -1585 260 Intake: Intake, IV Titration 700 Amount D5-0.45% NaCl with KCl 700 20Meq/l 1,000 ml @ 50 mls /hr IV .Q20H TETE Rx#: [id number] Oral 340 Output: Drainage 235 135 80 Left 65 30 20 Right 80 45 20 Right Lower 90 60 40 Urine 1400 1450 Uretheral ([place]) 1400 1450 Other: Voiding Method Toilet Toilet Toilet # Voids 1 2 - Exam Bilateral chest wall incisions clean and dry, no ischemic changes noted - Labs CBC & Chem 7: 11/20/18 07:16 11/20/18 07:16 Assessment and Plan (1) Breast cancer, right Narrative/Plan: Patient states she is still having enough pain that she would prefer to stay been one more night. Will plan discharge tomorrow. Current Visit: Yes Status: Acute Code(s): C50.911 - MALIGNANT NEOPLASM OF UNSP SITE OF RIGHT FEMALE BREAST SNOMED Code(s): 823831069
--- NOTE | 2018-11-21 22:49 | P.PN ---
Progress Note - Text Progress Note Date: 11/21/18 Presenting complaint: Bilateral mastectomy Interval history: Patient is status post bilateral mastectomy. Has bilateral gr one on the left side 2 on the right side. Pain is present at the operative site. No nausea vomiting. Has been eating light. Has possible status. This is out of bed. A bit tired with slight nausea. Review of systems: Was done for constitutional, cardiovascular, GI, pulmonary. relevant finding as above Medications reviewed that included Subcu heparin, [place], Dilaudid, alert, lidocaine drip,. On examination: VITAL SIGNS: 97.9, 85, 17, 97/64, 96% room air GENERAL APPEARANCE: Average build. Sitting up on bed not in distress. HEENT: Normal external appearance of nose and ear. Oral cavity normal EYES: Pupils equal. Conjunctiva normal. NECK: JVD not raised. Mass not palpable. RESPIRATORY: Respiratory effort normal. Lungs clear to auscultation. CARDIOVASCULAR: First and second sounds normal. No edema. ABDOMEN: Soft. Liver and spleen not palpable. No tenderness. No mass palpable. PSYCHIATRY: Alert and oriented x3. Mood and affect normal. Chest wall: Dressing over the chest wall with 2 drains on the right side and one drain on the left side Investigations: White count 11.1 hemoglobin 10.6 potassium 4.2 Assessment: -Bilateral mastectomy -GERD -Essential hypertension -Postop hypotension from blood loss -Acute postop blood loss anemia expected from surgery -Invasive lobular cancer of the right breast Plan: Continue to hold patient's antihypertensive. This was discussed in detail with the patient's. Patient does have a blood pressure cuff at home and will monitor blood pressure daily. Questions were answered. Encouraged to be out of bed. Thank you Dr. Shelley again
[2018-11-22] MEDS: LACTATED RINGERS 1,000 ML IV SCH (00:02)
[2018-11-22] MEDS: HYDROcodone/APAP 5-325MG 1 EACH TAB PO PRN ×4 (02:12→16:14)
[2018-11-22] MEDS: KETOROLAC 30 MG/ML 1 ML VIAL IVP SCH ×2 (05:18→11:43)
[2018-11-22] MEDS: DOCUSATE 100 MG CAP PO SCH (06:58)
[2018-11-22] MEDS: HEPARIN SODIUM,PORCINE 5,000 UNIT/ML 1 ML VIAL SQ SCH ×2 (06:58→14:55)
[2018-11-22] MEDS ORDERED: PANTOPRAZOLE 40 MG TABLET PO SCH (07:30)
[2018-11-22 08:34] VITALS: RESP 16; TEMP 97.8
[2018-11-22 15:20] VITALS: BP 120/81; PULSE 77
--- NOTE | 2018-11-22 16:49 | P.DS ---
Providers Date of admission: 11/19/18 23:38 Expected date of discharge: 11/22/18 Attending physician: Elkin Manning Consults: 11/19/18 11:50 Consult Physician Routine Consulting Provider: Ramez Jama Consult Reason/Comments: Medical management Do you want consulting provider notified?: Yes Primary care physician: Lenny Knight - Discharge Diagnosis(es) (1) Breast cancer, right Patient admitted after elective bilateral mastectomy with right axillary lymph node biopsy and dissection. Doing well postoperative. Pain is been mild to moderate throughout. Doing better as far as pain goes today. She is stable for discharge and has been cleared by medicine. Prescription for [place] provided. Patient will follow-up with myself and plastic surgery next week. Current Visit: Yes Status: Acute Plan - Discharge Summary Discharge Rx Participant: Yes New Discharge Prescriptions: No Action amLODIPine [Norvasc] 10 mg PO DAILY Loratadine [Claritin] 10 mg PO DAILY PRN PRN Reason: seasonal allergies Famotidine 40 mg PO HS Benazepril HCl 40 mg PO DAILY Metoclopramide [Reglan] 10 mg PO QID PRN PRN Reason: Gi Upset Discharge Medication List Benazepril HCl 40 mg PO DAILY 08/29/18 [History] Famotidine 40 mg PO HS 08/29/18 [History] Loratadine [Claritin] 10 mg PO DAILY PRN 08/29/18 [History] amLODIPine [Norvasc] 10 mg PO DAILY 08/29/18 [History] Metoclopramide [Reglan] 10 mg PO QID PRN 11/15/18 [History] Follow up Appointment(s)/Referral(s): Glynn Sloan MD [Medical Doctor] - 1 Week Elkin Manning MD [STAFF PHYSICIAN] - 11/25/18
--- NOTE | 2018-11-22 23:25 | P.PN ---
Progress Note - Text Progress Note Date: 11/22/18 Presenting complaint: Bilateral mastectomy Interval history: Patient is status post bilateral mastectomy. Has bilateral drain one on the left side 2 on the right side. Today-doing better. Does not like the hospital food. Some pain is present. Some bloody drainage the light and up. Bleeding stable. Has been out of that. No new issues. Overall feeling better. Sisters visiting from [place]. Review of systems: Was done for constitutional, cardiovascular, GI, pulmonary. relevant finding as above Medications reviewed On examination: VITAL SIGNS: 97.8, 74, 16, 107/71, 96% room air GENERAL APPEARANCE: Propped up in bed, not in distress. HEENT: Normal external appearance of nose and ear. Oral cavity normal EYES: Pupils equal. Conjunctiva normal. NECK: JVD not raised. Mass not palpable. RESPIRATORY: Respiratory effort normal. Lungs clear to auscultation. CARDIOVASCULAR: First and second sounds normal. No edema. ABDOMEN: Soft. Liver and spleen not palpable. No tenderness. No mass palpable. PSYCHIATRY: Alert and oriented x3. Mood and affect normal. Chest wall: Dressing over the chest wall with 2 drains on the right side and one drain on the left side Investigations: None from today Assessment: -Bilateral mastectomy -GERD -Essential hypertension -Postop hypotension from blood loss -Acute postop blood loss anemia expected from surgery -Invasive lobular cancer of the right breast Plan: Care was discussed with the patient. Did remind her about her blood pressure medications. Reminded to take her blood pressure daily. To reintroduce blood pressure medication as discussed Thank you Dr. Sloan
== END 2018-11-22 17:23 | disposition home or self-care (01) ==
LOC: OR 07:19 → 4SSUR 13:06 → OR 23:37 → 4SSUR 23:38 → OR 11-20 01:40 → 4SSUR 11-20 01:40
PROVIDERS: ADMIT Plastic Surgery; ATTEND Plastic Surgery
DX: C50.911 Malignant neoplasm of unspecified site of right female breast (principal); Z40.01 Encounter for prophylactic removal of breast; K21.9 Gastro-esophageal reflux disease without esophagitis; I10 Essential (primary) hypertension; R11.0 Nausea; D62 Acute posthemorrhagic anemia; J30.2 Other seasonal allergic rhinitis; Z79.899 Other long term (current) drug therapy; Z86.010 Personal history of colon polyps
CPT/HCPCS: 19303; 19307; 19357; 96372 ×4; 81025; 64413; 80048; 85025; 88342; 88331; 88307; 88341; 38792; G0378 ×4; C1763; A9520; J2250 ×2; J1644 ×4; J1100; J2765; J2405 ×2; J0690; J2001; Q9968; J3010; J1885 ×2; J1170 ×4; J2795; J2370; J0330; J2704; C9113 ×2

== ENCOUNTER 2018-11-28 21:33 | Emergency (ER) | payer OTHER ==
[2018-11-28 21:41] VITALS: TEMP 98.3
--- NOTE | 2018-11-28 22:27 | ED ---
Recheck HPI - General Chief Complaint: Recheck/Abnormal Lab/Rx Stated Complaint: Drain tube is leaking Time Seen by Provider: 11/28/18 21:48 Source: patient Mode of arrival: ambulatory Limitations: physical limitation - History of Present Illness Initial Comments: This patient is a 48-year-old woman who presents to have evaluation of her mastectomy drainage site. She states that she underwent bilateral mastectomy [address] Sloan, related to breast cancer. She had followed up in the clinic and had 2 out of 3 drain tubes removed. The patient did have increased drainage from her remaining tube. In addition there was a small amount of leakage around the tube that remains. The patient denies any other symptoms, including no fever or chills. She is not having any redness or warmth of the surgical sites. She is not having any increased pain area no chest pain, dyspnea, palpitations. No leg pain or swelling. MD Complaint: wound re-check Onset/Timin -: days(s) Initial Visit For: other (Surgical) Returns Today for: wound recheck Symptoms Since Prior Visit: worsening discharge Associated Symptoms: none - Related Data Home Medications Medication Instructions Recorded Confirmed Benazepril HCl 40 mg PO DAILY 08/29/18 11/20/18 Famotidine 40 mg PO HS 08/29/18 11/20/18 Loratadine [Claritin] 10 mg PO DAILY PRN 08/29/18 11/20/18 amLODIPine [Norvasc] 10 mg PO DAILY 08/29/18 11/20/18 Metoclopramide [Reglan] 10 mg PO QID PRN 11/15/18 11/20/18 Allergies Allergy/AdvReac Type Severity Reaction Status Date / Time No Known Allergies Allergy Verified 11/28/18 21:41 Review of Systems ROS Statement: Those systems with pertinent positive or pertinent negative responses have been documented in the HPI. ROS Other: All systems not noted in ROS Statement are negative. Constitutional: Denies: fever, chills Respiratory: Denies: cough, dyspnea Cardiovascular: Denies: chest pain, palpitations, edema, syncope Gastrointestinal: Denies: diarrhea, constipation Genitourinary: Denies: dysuria Musculoskeletal: Denies: back pain Skin: Reports: as per HPI. Denies: rash, change in color Neurological: Denies: headache Past Medical History Past Medical History: Cancer, GERD/Reflux, Hypertension Additional Past Medical History / Comment(s): seasonal allergies, rt breast cancer History of Any Multi-Drug Resistant Organisms: None Reported Past Surgical History: Breast Surgery, Tonsillectomy Additional Past Surgical History / Comment(s): "surgery for endometriosis"- 2000, colonoscopy with 1 polyp removed , bilateral mastecomty Past Anesthesia/Blood Transfusion Reactions: No Reported Reaction Past Psychological History: Anxiety, Depression Smoking Status: Never smoker Past Alcohol Use History: None Reported Past Drug Use History: None Reported - Past Family History Father Family Medical History: Cancer General Exam Limitations: physical limitation General appearance: alert, in no apparent distress Head exam: Present: atraumatic, normocephalic Eye exam: Present: normal appearance. Absent: scleral icterus, conjunctival injection Respiratory exam: Present: normal lung sounds bilaterally. Absent: respiratory distress, wheezes, rales, rhonchi, stridor Cardiovascular Exam: Present: regular rate, normal rhythm, normal heart sounds. Absent: systolic murmur, diastolic murmur, rubs, gallop Skin exam: Present: warm, dry, intact, normal color, other (The patient's drain tube insertion site is clean and dry. There is currently no erythema, warmth, or drainage. Output from the tube appears serous with just a trace of blood. No purulent drainage.). Absent: rash Course Vital Signs 11/28/18 21:34 Temperature 98.3 F Pulse Rate 77 Respiratory 16 Rate Blood Pressure 140/94 O2 Sat by Pulse 100 Oximetry Medical Decision Making - Medical Decision Making Patient is a 48-year-old woman in for a recheck of her mastectomy surgical drain site. After the evaluation, I did discuss the patient's findings with Dr. Valadez, who is covering for Dr. Sloan. Following discussion I reviewed the surgeon's advice with the patient, and she'll follow with Dr. Sloan. Disposition Clinical Impression: Encounter for wound re-check Disposition: HOME SELF-CARE Condition: Good Instructions (If sedation given, give patient instructions): Mastectomy (DC) Is patient prescribed a controlled substance at d/c from ED?: No Referrals: Glynn Sloan MD [Medical Doctor] - 1-2 days
[2018-11-28 22:54] VITALS: BP 125/86; PULSE 99; RESP 19
== END 2018-11-28 22:52 | disposition home or self-care (01) ==
LOC: EC 21:33
DX: Z51.89 Encounter for other specified aftercare (principal); C50.911 Malignant neoplasm of unspecified site of right female breast; K21.9 Gastro-esophageal reflux disease without esophagitis; I10 Essential (primary) hypertension; F32.9 Major depressive disorder, single episode, unspecified; F41.9 Anxiety disorder, unspecified; Z79.899 Other long term (current) drug therapy; Z90.13 Acquired absence of bilateral breasts and nipples
CPT/HCPCS: 99283

== ENCOUNTER 2018-12-06 16:54 | Emergency (ER) | payer OTHER ==
[2018-12-06 17:29] VITALS: BP 112/73; PULSE 84; RESP 18; TEMP 98.5
--- NOTE | 2018-12-06 18:42 | ED ---
General Adult HPI - General Chief complaint: Skin/Abscess/Foreign Body Stated complaint: Post Op Drainage Time Seen by Provider: 12/06/18 17:42 Source: patient Mode of arrival: ambulatory Limitations: no limitations - History of Present Illness Initial comments: Patient is a 48-year-old female presents emergency Department discharge from incision site. Patient reports a double mastectomy on November 19 and she reports no complications after surgery until today. Patient notes "whitish yellow"discharge from the right breast incision site. Patient reports she is unsure if the area is more sensitive not because she had pain previously due to the procedure. Patient denies fever, nausea, vomiting, night sweats or chills. Patient denies any redness or erythema or edema at the site. Patient denies taking any medication to alleviate the symptoms. Patient reports she only sleeps on her back and denies trauma to the incision site. - Related Data Home Medications Medication Instructions Recorded Confirmed Benazepril HCl 40 mg PO DAILY 08/29/18 11/20/18 Famotidine 40 mg PO HS 08/29/18 11/20/18 Loratadine [Claritin] 10 mg PO DAILY PRN 08/29/18 11/20/18 amLODIPine [Norvasc] 10 mg PO DAILY 08/29/18 11/20/18 Metoclopramide [Reglan] 10 mg PO QID PRN 11/15/18 11/20/18 Previous Rx's Medication Instructions Recorded Cephalexin [Keflex] 500 mg PO Q6HR #40 cap 12/06/18 Allergies Allergy/AdvReac Type Severity Reaction Status Date / Time No Known Allergies Allergy Verified 12/06/18 17:28 Review of Systems ROS Statement: Those systems with pertinent positive or pertinent negative responses have been documented in the HPI. ROS Other: All systems not noted in ROS Statement are negative. Past Medical History Past Medical History: Cancer, GERD/Reflux, Hypertension Additional Past Medical History / Comment(s): seasonal allergies, rt breast cancer History of Any Multi-Drug Resistant Organisms: None Reported Past Surgical History: Breast Surgery, Tonsillectomy Additional Past Surgical History / Comment(s): "surgery for endometriosis"- 2000, colonoscopy with 1 polyp removed , bilateral mastecomty Past Anesthesia/Blood Transfusion Reactions: No Reported Reaction Past Psychological History: Anxiety, Depression Smoking Status: Never smoker Past Alcohol Use History: None Reported Past Drug Use History: None Reported - Past Family History Father Family Medical History: Cancer General Exam Limitations: no limitations General appearance: alert, in no apparent distress Head exam: Present: atraumatic, normocephalic, normal inspection Eye exam: Present: normal appearance, PERRL, EOMI Pupils: Present: normal accommodation ENT exam: Present: normal exam, mucous membranes moist, normal external ear exam Neck exam: Present: normal inspection, full ROM Respiratory exam: Present: normal lung sounds bilaterally, other (Double mas tectomy. Very small yellow drainage from incision site on right breast.) Cardiovascular Exam: Present: regular rate, normal rhythm, normal heart sounds Extremities exam: Present: normal inspection, full ROM Back exam: Present: normal inspection, full ROM Neurological exam: Present: alert, oriented X3 Psychiatric exam: Present: normal affect, normal mood Skin exam: Present: warm, intact, normal color Course Vital Signs 12/06/18 17:27 Temperature 98.5 F Pulse Rate 84 Respiratory 18 Rate Blood Pressure 112/73 O2 Sat by Pulse 98 Oximetry Medical Decision Making - Medical Decision Making Patient is a 48-year-old female presents emergency Department with discharge from incision site. Dr. Britton attempted to get in contact with the patient's surgeon who performed the procedure and was unable to. Patient will be placed on a 10 day course of Keflex. This the history of physical examination the area does not appear infected. Patient reports that she is going to see her surgeon within this week. Strict return parameters were thoroughly discussed with patient who is understanding and agreeable. also examined the patient and is in agreement with the treatment plan. Disposition Clinical Impression: Breast discharge Disposition: HOME SELF-CARE Condition: Stable Instructions (If sedation given, give patient instructions): Abscess (ED) Additional Instructions: Please take prescribed medication as directed. Please follow-up with the surgeon. Please return to emergency department if symptoms worsen. Prescriptions: Cephalexin [Keflex] 500 mg PO Q6HR #40 cap Is patient prescribed a controlled substance at d/c from ED?: No Referrals: Lenny Knight MD [Primary Care Provider] - 1-2 days Time of Disposition: 19:39
== END 2018-12-06 19:52 | disposition home or self-care (01) ==
LOC: EC 16:54
DX: T81.89XA Other complications of procedures, not elsewhere classified, initial encounter (principal); N64.52 Nipple discharge; K21.9 Gastro-esophageal reflux disease without esophagitis; I10 Essential (primary) hypertension; Z90.13 Acquired absence of bilateral breasts and nipples; Z85.3 Personal history of malignant neoplasm of breast; Z79.899 Other long term (current) drug therapy
CPT/HCPCS: 99283

== ENCOUNTER 2019-01-16 11:37 | Day surgery (SDC) | payer OTHER ==
[2019-01-10 16:50] VITALS: BMI 22.6
[~2019-01-16 11:37] MED LIST changes: +HYDROmorphone 0.5 MG/0.5 ML SYRINGE IVP PRN; +LACTATED RINGERS 1,000 ML IV SCH; -LIDOCAINE 1% 20 ML VIAL (10MG/ML) FOR IV START INTRADERMA PRN; -SCOPOLAMINE 1.5MG/72HR PATCH TRANSDERM ONE
[2019-01-16] MEDS ORDERED: LIDOCAINE 1% 20 ML VIAL (10MG/ML) FOR IV START INTRADERMA ONE (12:15)
[2019-01-16 12:20] VITALS: TEMP 97.2
[2019-01-16] MEDS ORDERED: HEPARIN SODIUM,PORCINE 100 UNIT/ML 5 ML VIAL IV ONE (13:03)
[2019-01-16] MEDS ORDERED: LIDOCAINE (PF) 10 MG/ML 2 ML VIAL SQ ONE ×2 (13:03)
--- NOTE | 2019-01-16 13:38 | P.GSHP ---
History of Present Illness H&P Date: 01/16/19 Chief Complaint: Right breast cancer 48-year-old female well-known to our service. Underwent bilateral mastectomy with reconstruction. Here today for Port-A-Cath placement for the administration of chemotherapy. She has not had a port previously. Past Medical History Past Medical History: Cancer, GERD/Reflux, Hypertension, Osteoarthritis (OA) Additional Past Medical History / Comment(s): seasonal allergies, rt breast cancer History of Any Multi-Drug Resistant Organisms: None Reported Past Surgical History: Breast Surgery, Tonsillectomy Additional Past Surgical History / Comment(s): "surgery for endometriosis"- 2000, colonoscopy , bilateral mastecomty, BREAST RECONSTRUCTION -BILATERAL EXPANDERS Past Anesthesia/Blood Transfusion Reactions: No Reported Reaction Smoking Status: Never smoker - Past Family History Father Family Medical History: Cancer Additional Family Medical History / Comment(s): COLON CANCER Medications and Allergies Home Medications Medication Instructions Recorded Confirmed Type Benazepril HCl 40 mg PO DAILY 08/29/18 01/16/19 History Famotidine 40 mg PO HS 08/29/18 01/16/19 History Loratadine [Claritin] 10 mg PO DAILY PRN 08/29/18 01/16/19 History amLODIPine [Norvasc] 10 mg PO DAILY 08/29/18 01/16/19 History Metoclopramide [Reglan] 10 mg PO QID PRN 11/15/18 01/16/19 History Allergies Allergy/AdvReac Type Severity Reaction Status Date / Time No Known Allergies Allergy Verified 01/16/19 12:02 Surgical - Exam Vital Signs Temp Pulse Resp BP Pulse Ox 97.2 F L 71 16 86/56 100 01/16/19 12:19 01/16/19 12:19 01/16/19 12:19 01/16/19 12:19 01/16/19 12:19 Physical exam: General: Well-developed, well-nourished HEENT: Normocephalic, sclerae nonicteric Abdomen: Nontender, nondistended Chest: Bilateral reconstructed breast, incisions clean and dry Extremities: No edema Neuro: Alert and oriented Assessment and Plan (1) Breast cancer, right Narrative/Plan: Will proceed with Port-A-Cath placement at this time. Risks of bleeding, infection, DVT, pneumothorax, catheter malfunction, anesthesia related complications were discussed. The patient understands and wishes to proceed. Current Visit: No Status: Acute Code(s): C50.911 - MALIGNANT NEOPLASM OF UNSP SITE OF RIGHT FEMALE BREAST SNOMED Code(s): 626202935
[2019-01-16] MEDS ORDERED: PROPOFOL 10 MG/ML 20 ML VIAL IV ONE (13:46)
[2019-01-16] MEDS ORDERED: MIDAZOLAM 2 MG/2 ML VIAL ONE (13:46)
[2019-01-16] MEDS ORDERED: ePHEDrine SULFATE/0.9% NACL/PF 50 MG/5 ML SYRINGE IV ONE (13:46)
[2019-01-16] MEDS ORDERED: PHENYLEPHRINE-0.9% NACL SYG 1 MG/10 ML SYRINGE ONE (13:46)
[2019-01-16] MEDS ORDERED: LIDOCAINE 1% INJ 10MG/ML (20 ML MDV) ONE (13:46)
[2019-01-16] MEDS ORDERED: fentaNYL (PF) 50 MCG/ML 2 ML AMP ONE (13:46)
[2019-01-16] MEDS ORDERED: ceFAZolin 1,000 MG VIAL IVPB ONE (14:07)
[2019-01-16] MEDS ORDERED: LACTATED RINGERS 1,000 ML IV ONE (14:11)
[2019-01-16] MEDS ORDERED: NALOXONE 0.4 MG/ML 1 ML VIAL IV PRN (14:37)
[2019-01-16] MEDS ORDERED: HYDROcodone/APAP 5-325MG 1 EACH TAB PO PRN (14:37)
--- NOTE | 2019-01-16 14:40 | P.OP ---
Date of Procedure: 01/16/19 Procedure(s) Performed: PREOPERATIVE DIAGNOSIS: Breast cancer POSTOPERATIVE DIAGNOSIS: Same PROCEDURE: Port-A-Cath placement SURGEON: Luther EBL: Minimal ANESTHESIA: Sedation COMPLICATIONS: None OPERATIVE PROCEDURE: Patient was brought and placed on the operative table in the supine position. The patient was sedated per anesthesia that time. The chest and neck were prepped and draped in usual sterile fashion. The ultrasound probe was used to identify the location of the right internal jugular vein. The skin was localized with lidocaine. The Seldinger needle was advanced into the IJ under ultrasound guidance. The wire was advanced through the needle under fluoroscopic guidance into the superior vena cava. A port pocket was created in the right infraclavicular location. The catheter was tunneled from the wire entrance site to the port pocket. The port was then connected to the catheter. The dilator introducer was threaded over the guidewire. The guidewire and dilator were then removed. The catheter was advanced through the introducer and introducer was then removed. The tip was seen to be in the right atrial junction. Port was flushed with both saline and a Hep-Lock solution. There was good flow both in and out of the port. The port was sutured in underlying tissues using 3-0 silk sutures. The subcutaneous tissues were reapproximated using 3-0 Vicryl sutures and the skin at both locations using 4-0 Monocryl sutures. Skin glue and sterile dressings then applied. DISPOSITION: Stable to recovery room
--- NOTE | 2019-01-16 14:51 | FL ---
EXAMINATION TYPE: FL guided central line placemt HISTORY: Fluoroscopy time Impression: 1. Fluoroscopy support provided to the referring physician. 6 seconds of fluoroscopy provided.
[2019-01-16 15:05] VITALS: RESP 16
--- NOTE | 2019-01-16 15:17 | XR ---
EXAMINATION TYPE: XR chest 1V confirm line [facility] [place] DATE OF EXAM: 01/16/2019 COMPARISON: NONE HISTORY: Post Port-A-Cath placement TECHNIQUE: Single frontal view of the chest is obtained. FINDINGS: There is no focal air space opacity, pleural effusion, or pneumothorax seen. The cardiac silhouette size is within normal limits. The osseous structures are intact. Port-A-Cath seen with t he tip overlying the SVC. No pneumothorax. Hyperinflation noted. Hypertrophic and degenerative change of the spine. IMPRESSION: Port-A-Cath seen with the tip overlying the SVC.
[2019-01-16] MEDS ORDERED: HYDROcodone/APAP 5-325MG 1 EACH TAB PO ONE (15:40)
[2019-01-16 16:07] VITALS: BP 102/68; PULSE 86
== END 2019-01-16 16:48 | disposition home or self-care (01) ==
LOC: OR 11:37
PROVIDERS: ATTEND Surgery
DX: C50.911 Malignant neoplasm of unspecified site of right female breast (principal); I10 Essential (primary) hypertension; Z90.13 Acquired absence of bilateral breasts and nipples; K21.9 Gastro-esophageal reflux disease without esophagitis; M19.90 Unspecified osteoarthritis, unspecified site; Z80.0 Family history of malignant neoplasm of digestive organs; Z79.899 Other long term (current) drug therapy
CPT/HCPCS: 81025; 77001; 36561; 76937; C1788; J2250; J2001 ×2; J1644; J1642; J1100; J2405; J0690; J3010; J2370; J2704

== ENCOUNTER 2019-08-12 09:46 | Day surgery (SDC) | payer OTHER ==
[2019-08-08 17:17] VITALS: BMI 20.9
[~2019-08-12 09:46] MED LIST changes: -HEPARIN SODIUM,PORCINE 5,000 UNIT/ML 1 ML VIAL SQ ONE; -HYDROmorphone 0.5 MG/0.5 ML SYRINGE IVP PRN; +LIDOCAINE 1% (10MG/ML) FOR IV START INTRADERMA PRN; -Pre Op ABX Message 1 EACH MISC MISCELLANE ONE; +fentaNYL (PF) 50 MCG/ML 2 ML AMP IV PRN
[2019-08-12] MEDS ORDERED: MIDAZOLAM 2 MG/2 ML VIAL IVP ONE (11:15)
[2019-08-12] MEDS ORDERED: fentaNYL (PF) 50 MCG/ML 2 ML AMP IVP ONE (11:17)
[2019-08-12] MEDS ORDERED: ePHEDrine SULFATE/0.9% NACL/PF 50 MG/5 ML SYRINGE IV ONE (11:30)
[2019-08-12] MEDS ORDERED: LIDOCAINE 1% INJ 10MG/ML (20 ML MDV) ONE (11:30)
[2019-08-12] MEDS ORDERED: SUCCINYLCHOLINE CHLORIDE 100 MG/5 ML SYR IV ONE (11:30)
[2019-08-12] MEDS ORDERED: MIDAZOLAM 2 MG/2 ML VIAL ONE (11:30)
[2019-08-12] MEDS ORDERED: ROCURONIUM BROMIDE 10 MG/ML 5 ML VIAL IV ONE (11:30)
[2019-08-12] MEDS ORDERED: PROPOFOL 10 MG/ML 20 ML VIAL IV ONE (11:30)
[2019-08-12] MEDS ORDERED: fentaNYL (PF) 50 MCG/ML 2 ML AMP ONE (11:30)
--- NOTE | 2019-08-12 12:03 | P.ANPRN ---
Procedure Note - Anesthesia - Nerve Block Performed Bilateral Other (see comment) Time Out Performed: Yes (1115 PECS 1 & 2 bilateral) Date of Procedure: 08/12/19 Procedure Start Time: 11:15 Procedure Stop Time: :22 Location of Patient: PreOp Indication: Acute Post-Operative Pain, Requested by Surgeon Specifically requested for management of pain by DrBessy: Elkin Manning Sedation Type: Sedate with meaningful contact maintained Preparation: Sterile Prep Position: Supine Catheter: None Needle Types: Pajunk Needle Gauge: 21 (2in) Ultrasound used to visualize needle placement: Yes Ultrasound used to observe medication spread: Yes Injectate: 0.5% Ropivacaine (see comment for volume) (7.5 cc PEC 1 and 7.5Cc Pec 2 B/L 30cc total) Blood Aspirated: No Pain Paresthesia on Injection Noted: No Resistance on Injection: Normal Image Stored and Saved: Yes Events: Uneventful and Well Tolerated
[2019-08-12] MEDS ORDERED: SODIUM CHLORIDE 0.9% 1,000 ML IV ONE (12:57)
[2019-08-12 14:19] VITALS: TEMP 97
[2019-08-12 15:02] VITALS: RESP 18
[2019-08-12] MEDS ORDERED: LACTATED RINGERS 800 ML IV ONE (15:03)
[2019-08-12] MEDS ORDERED: ONDANSETRON 4 MG/2 ML VIAL IVP ONE (15:04)
[2019-08-12 15:34] VITALS: BP 120/76; PULSE 76
--- NOTE | 2019-08-13 06:34 | OP ---
OPERATIVE REPORT DATE OF PROCEDURE: August 12, 2019. SURGEON: Elkin Manning MD. PREOPERATIVE DIAGNOSES: 1. Acquired loss right and left breast. 2. Personal history of breast cancer. 3. Personal history of bilateral mastectomy. 4. 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 5. 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 POSTOPERATIVE DIAGNOSES: 1. Acquired loss right and left breast. 2. Personal history of breast cancer. 3. Personal history of bilateral mastectomy. 4. 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 5. 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 OPERATIVE PROCEDURES: 1. Replace right breast tissue landfill gas technician with silicone breast implant for right breast reconstruction. 2. Revision of right reconstructed breast. 3. Replace left breast tissue landfill gas technician with silicone breast implant for left breast reconstruction. 4. Revision left reconstructed breast. 5. Reconstruction of right and left breast inframammary folds via local advancement flap, 74 square centimeters. 6. Implantation of reconstructive graft to right and left breast for reconstruction. 7. Removal of Mediport right upper chest wall. OPERATIVE INDICATIONS: The patient is a 49-year-old female who has undergone bilateral mastectomy for treatment of breast cancer this fall. She underwent immediate reconstruction following her mastectomies with insertion of tissue expanders and has completed subsequent outpatient expansion. She is returning for the second stage of breast reconstructive surgery today. The patient has completed chemotherapy and has been told it is time to have her Mediport removed, which was placed in the right upper chest wall. She has requested that I perform that service and in addition, the patient has acquired significant deformities due to the mastectomy and expansion processes with asymmetries that will require revision to optimize her reconstructive result. The patient understands her potential risks and complications related to the surgery including, but not limited to, wound healing problems, asymmetry, seroma, hematoma, infection, among others. She has requested that I perform today's surgery. OPERATIVE PROCEDURE SUMMARY: The patient was seen in the presurgical area, markings made, procedure reviewed. All questions answered. She was transported to the operative room where she was placed in supine position. Once general endotracheal anesthesia was established, she was prepped and draped in the usual fashion. Surgery was initiated and markings for surgical incision were placed in the right and left breast including a small elliptical section of the mastectomy scar from each side was to be removed. Starting on the right side, an incision was made as diagrammed, removing the mastectomy scar, which was sent to pathology. Skin incision was made in full-thickness fashion with 10 blade scalpel. Cauterization was then used to divide subcutaneous tissue layer until identifying the muscle flap layer underneath. The skin, subcutaneous tissue flaps were then elevated off the muscle flap layer. Extensive dissection was required to release contour irregularities and deformities caused by the prior mastectomy and expansion processes. Once this was completed, a lower transverse incision was made through the muscle flap tissue exposing the landfill gas technician. The landfill gas technician was removed intact. The landfill gas technician was discarded. The landfill gas technician cavity appeared normal with some clear fluid, but no granulation tissue and no exudates. The cavity was packed open with several moistened laparotomy sponges. Attention was turned towards the left side. Again, following the diagram placed for incision, an elliptical incision was made over the central portion of mastectomy scar and the mastectomy scar removed on the left. It was sent to pathology. The subcutaneous tissue layer was divided with cautery until reaching the muscle fascial plane. Skin and subcutaneous tissue flaps were then elevated off the muscle fascial layer. Extensive dissection was required to release contour irregularities and deformities caused by the prior mastectomy and expansion process. Once this was completed, a lower transverse incision was made through the muscle flap tissue exposing the landfill gas technician. The landfill gas technician was removed intact and discarded. The expansion cavity appeared normal with some clear serous fluid; no granulation tissue, no exudates. Both cavities were now irrigated with saline. Remaining on the left side, a complete capsulotomy incision was made where the capsule joined the chest wall. Additional dissection was required to release contour irregularities due to muscle flap collapse mostly medial on the left side creating greater space medially. Cruciate incisions were then made through the capsular structure from the inside to release tension and allow for optimal draping. Inferiorly, the flap was now created to reconstruct the left inframammary fold that measured 19 x 2 square centimeters. The flap consisted of skin, subcutaneous tissue was elevated with cauterization through the inferior capsulotomy incision area. Once the flap was created, it was advanced in cephalad fashion and secured to the periosteal rib tissue in several discrete interrupted locations using 0 Vicryl suture. Additional irrigation was performed. Hemostasis was excellent. Attention was turned towards the right side. Again, a complete capsulotomy incision was made where the capsule joined the chest wall. Multiple cruciate incisions made through the capsule to release the tightness to the structure. Additional dissection was required medially, although not as much as compared to the left side to optimize the space for the reconstruction. Through the inferior capsulotomy incision, an inframammary fold flap was now developed consisting of skin, subcutaneous tissue. The flap on the right side measured 18 x 2 square centimeters. Once created, it was advanced in a cephalad fashion secured to rib periosteal tissues in several discrete locations using 0 Vicryl suture. The inframammary flaps were in symmetrical locations when evaluated with the patient in the seated up position. Several temporary breast implant sizers were opened on the field after changing gloves. Ultimately, 600 mL sizers appeared optimal for this patient's reconstruction. She was returned to supine position. Temporary breast implant sizers removed. Irrigation performed. It was clear from placement of the sizers that the muscle flap could not fully approximate the patient's implant without cause creases. Therefore SurgiMend reconstructive graft was opened on the field at this point. Once revitalized with room temperature saline each piece of SurgiMend that measured 10 x 15 cm and was fenestrated was inserted in the reconstructive cavity on the right and left side and sutured just above the inframammary fold region to provide support where the muscle flap could not cover the implants. With this completed on each side, gloves were again changed. Implants now opened on the field. Both implants were from the [employer]. Memory gel breast implant, smooth, round, moderate profile, reference #[id number]. The serial number for the right-sided device is [id number]. For the left-sided device, the serial number was [id number]. Gloves were changed prior to inserting each implant. The implants were opened from the package, irrigated with saline, only handled by the surgeon and directly inserted in the reconstructive cavities. The right implant was inserted first. The SurgiMend was advanced over the implant then the left implant was inserted and then SurgiMend advanced over the implant. The SurgiMend was then inset to the cephalad portion of the muscle flap tissue using interrupted 3-0 Vicryl sutures. Complete coverage was obtained and no creasing of the implants occurred. The skin incision on each side was now closed approximating deep dermis using inverted interrupted 4-0 Monocryl followed by closure of superficial dermis and epidermis with short running 5-0 Prolene. During dissection on the right side for release of the capsule and through the cephalad portion, dissection was performed through the base of the muscle flap to gain access to the patient's Mediport that was in the right upper anterior chest. Hemostat was used to spread the muscle fibers parallel to the direction exposing the scar layer over the Mediport. This was divided with cautery. The Mediport was grasped with a Bridgette clamp and removed directly. The Mediport was inspected and removed intact. The Mediport was discarded. The estimated blood loss of the procedure was 50 mL. The patient tolerated the procedure without complication. She was extubated in the operating room and transferred to recovery room in good condition with stable vital signs. There were no complications. MMODL / IJN: [id number] /
== END 2019-08-12 16:17 | disposition home or self-care (01) ==
LOC: OR 09:46
PROVIDERS: ATTEND Plastic Surgery
DX: Z90.13 Acquired absence of bilateral breasts and nipples (principal); Z85.3 Personal history of malignant neoplasm of breast; L90.5 Scar conditions and fibrosis of skin; L08.89 Other specified local infections of the skin and subcutaneous tissue; M19.90 Unspecified osteoarthritis, unspecified site; F32.9 Major depressive disorder, single episode, unspecified; N80.9 Endometriosis, unspecified; Z82.49 Family history of ischemic heart disease and other diseases of the circulatory system; Z98.890 Other specified postprocedural states; I10 Essential (primary) hypertension; K21.9 Gastro-esophageal reflux disease without esophagitis; Z79.899 Other long term (current) drug therapy; Z92.21 Personal history of antineoplastic chemotherapy
CPT/HCPCS: 11970; 19380; 14301; 14302; 36590; 64450; 76942; 88305; C1789; C1763; J2250; J1100; J0690; J2405; J2001; J3010; J0330; J2704; 64490